=== PATIENT | male | born 1970 | race Caucasian/White ===

== ENCOUNTER 2017-05-28 17:20 | Emergency (ER) | payer BC, OTHER ==
[2017-05-28 17:32] VITALS: BP 157/93
--- NOTE | 2017-05-28 17:39 | UC ---
Elbow Pain - HPI Summary HPI Summary: Pt presents with sudden onset of swelling, tenderness, erythema and warmth to right elbow that began yesterday and has worsened over the last 24 hours. 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 daily at work - History of Current Complaint Chief Complaint: UCUpperExtremity Stated Complaint: RIGHT ELBOW PAIN-WC Time Seen by Provider: 05/28/17 17:26 Hx Obtained From: Patient Onset/Duration: Days - 1, Atraumatic, Still Present, Worse Since - onset Severity Initially: Mild Severity Currently: Moderate Location Of Pain: Is Discrete @ - right elbow Character: Sharp, Dull, Aching Aggravating Factor(s): Movement, Pulling, Twisting Alleviating Factor(s): Rest Associated Signs And Symptoms: Positive: Swelling, Redness - Allergies/Home Medications Allergies/Adverse Reactions: Allergies Allergy/AdvReac Type Severity Reaction Status Date / Time No Known Allergies Allergy Verified 05/28/17 17:29 Home Medications: Home Medications Simvastatin TAB(NF) [Zocor 10 MG (NF)] 1 tab PO DAILY 05/28/17 [History Confirmed 05/28/17] metFORMIN* [Glucophage 500 MG TAB *] 500 mg PO BID 05/28/17 [History Confirmed 05/28/17] PMH/Surg Hx/FS Hx/Imm Hx Previously Healthy: No Endocrine History: Diabetes Cardiovascular History: Hypertension - Surgical History Surgical History: None - Family History Known Family History: Positive: Cardiac Disease - Social History Occupation: Employed Full-time Lives: With Family Alcohol Use: Occasionally Substance Use Type: None Smoking Status (MU): Never Smoked Tobacco Have You Smoked in the Last Year: No Review of Systems Constitutional: Negative Skin: Other - erythema Eyes: Negative ENT: Negative Respiratory: Negative Cardiovascular: Negative Gastrointestinal: Negative Genitourinary: Negative Motor: Decreased ROM - right elbow secondary to pain Neurovascular: Negative Musculoskeletal: Arthralgia - right elbow, Decreased ROM - right elbow, Edema - right elbow, Myalgia - right elbow Neurological: Negative Psychological: Negative All Other Systems Reviewed And Are Negative: Yes Physical Exam Triage Information Reviewed: Yes Appearance: Well-Appearing Vital Signs: Initial Vital Signs Temp 99.5 F 05/28/17 17:21 Pulse 94 05/28/17 17:21 Resp 16 05/28/17 17:21 BP 157/93 05/28/17 17:21 Pulse Ox 98 05/28/17 17:21 Vital Signs Reviewed: Yes Eye Exam: Normal Dental Exam: Normal Neck exam: Normal Respiratory Exam: Normal Cardiovascular Exam: Normal Musculoskeletal Exam: Other Musculoskeletal: Positive: Strength Limited @ - right elbow secondary to tenderness, Edema @ - right elbow/bursa olecrannon, mild erythema, swelling, tenderness, decreased ROM secondary to tenderness Neurological Exam: Normal Psychological Exam: Normal Skin Exam: Other - erythema right elbow Elbow Pain Course/Dx - Differential Dx/Diagnosis Differential Diagnosis/HQI/PQRI: Bursitis, Infection Provider Diagnoses: bursitis-right elbow. infected bursitis right elbow Discharge - Discharge Plan Condition: Stable Disposition: HOME Prescriptions: Cephalexin CAP* [Keflex 500 CAP*] 500 mg PO Q8H #30 cap Patient Education Materials: Elbow Bursitis (ED), RICE Therapy (ED) Forms: *Work Release Referrals: Divine Quispe [Primary Care Provider] - If Needed Additional Instructions: Please follow up with your PCP or return to clinic as needed. If your symptoms worsen please seek care from the nearest healthcare facility immediately.
== END 2017-05-28 17:52 | disposition home or self-care (01) ==
LOC: UCCORT 17:20
DX: M70.21 Olecranon bursitis, right elbow (principal); Y93.9 Activity, unspecified; E11.9 Type 2 diabetes mellitus without complications; Z79.84 Long term (current) use of oral hypoglycemic drugs; I10 Essential (primary) hypertension
CPT/HCPCS: 99212; G0463

== ENCOUNTER 2017-06-19 18:21 | Emergency (ER) | payer BC, OTHER ==
[2017-06-19 18:45] VITALS: BP 142/78
--- NOTE | 2017-06-19 19:40 | UC ---
Elbow Pain - HPI Summary HPI Summary: right elbow pain x 4 weeks + pain and swelling, difficulty flexion / moving the right elbow, no known injury, was seen at the urgent care 3 weeks ago, was dx with elbow bursitis - History of Current Complaint Chief Complaint: UCUpperExtremity Stated Complaint: RIGHT ELBOW PAIN Time Seen by Provider: 06/19/17 18:48 Hx Obtained From: Patient Mechanism of Injury: no known injury Onset/Duration: Weeks - 4, Still Present Severity Initially: Moderate Severity Currently: Severe Location Of Pain: Is Discrete @ - right elbow Character: Aching, Throbbing, Stiffness Aggravating Factor(s): Movement Alleviating Factor(s): Nothing Associated Signs And Symptoms: Positive: Swelling. Negative: Redness, Bruising , Fever - Allergies/Home Medications Allergies/Adverse Reactions: Allergies Allergy/AdvReac Type Severity Reaction Status Date / Time No Known Allergies Allergy Verified 06/19/17 18:44 PMH/Surg Hx/FS Hx/Imm Hx Previously Healthy: Yes - Surgical History Surgical History: None - Family History Known Family History: Positive: Cardiac Disease - Social History Alcohol Use: Rare Substance Use Type: None Smoking Status (MU): Never Smoked Tobacco Have You Smoked in the Last Year: No Review of Systems Constitutional: Negative Skin: Negative Eyes: Negative ENT: Negative Respiratory: Negative Cardiovascular: Negative All Other Systems Reviewed And Are Negative: Yes Physical Exam Triage Information Reviewed: Yes Appearance: Well-Appearing, No Pain Distress, Well-Nourished Vital Signs: Initial Vital Signs Temp 98.8 F 06/19/17 18:40 Pulse 68 06/19/17 18:40 Resp 16 06/19/17 18:40 BP 142/78 06/19/17 18:40 Pulse Ox 97 06/19/17 18:40 Vital Signs Reviewed: Yes Eyes: Positive: Conjunctiva Clear ENT: Positive: Normal ENT inspection, Hearing grossly normal, Pharynx normal Neck: Positive: Supple, Nontender, No Lymphadenopathy Respiratory: Positive: Chest non-tender, Lungs clear, Normal breath sounds Cardiovascular: Positive: RRR, No Murmur, Pulses Normal Musculoskeletal: Positive: Other: - right elblow : + swelling, + effusion , + diffuse tenderness, limited ROM on flexion and extension Elbow Pain Course/Dx - Differential Dx/Diagnosis Provider Diagnoses: elbow effusion Discharge - Discharge Plan Condition: Stable Disposition: HOME Patient Education Materials: Elbow Sprain (ED), Swollen Joint (ED) Referrals: Medardo Pike MD [Medical Doctor] - Divine Quispe [Primary Care Provider] -
--- NOTE | 2017-06-19 19:45 | RAD ---
Indication: Right elbow pain. 4 views of the right elbow demonstrates no fracture. No evidence of joint effusion is noted. No other bone or joint abnormality is identified. IMPRESSION: No fracture of the right elbow is noted.
== END 2017-06-19 19:58 | disposition home or self-care (01) ==
LOC: UCCORT 18:21
DX: M25.421 Effusion, right elbow (principal)
CPT/HCPCS: 99211; G0463

== ENCOUNTER 2017-07-07 11:47 | Day surgery (SDC) | payer BC ==
[~2017-07-07 11:47] MED LIST: Bupivacaine 0.25% SDV* 30 ML ONE
[2017-07-07] MEDS ORDERED: Famotidine IV* 10 MG/ML 2 ML (20 mg) ONE (11:58)
[2017-07-07] MEDS ORDERED: ceFAZolin 2 GM PREMIX (*) 50 ML IVPB ONE (11:58)
[2017-07-07] MEDS ORDERED: Lidocaine 2% PF * 5 ML VIAL ONE (12:12)
[2017-07-07] MEDS ORDERED: Mivacurium Chloride* 20 MG/10 ML VIAL IV ONE (12:12)
[2017-07-07] MEDS ORDERED: Propofol* 10 MG/ML 20 ML BTL IV PUSH ONE (12:12)
[2017-07-07] MEDS ORDERED: fentaNYL* 50 MCG/ML 5 ML VIAL (250 MCG VIAL) ONE (12:12)
[2017-07-07] MEDS ORDERED: Midazolam* 1 MG/ML 2 ML VIAL (2 MG) ONE (12:12)
[2017-07-07] MEDS ORDERED: oxyCODONE/Acetamin 5/325 MG* TAB PO PRN (12:29)
[2017-07-07] MEDS ORDERED: fentaNYL* 50 MCG/ML 2 ML VIAL (100 MCG VIAL) IV PRN (12:29)
[2017-07-07] MEDS ORDERED: HYDROcodone/ACETAMIN 5-325 MG* 1 TAB PO PRN (12:29)
[2017-07-07] MEDS ORDERED: PROCHLORPERAZINE INJ 5 MG/ML 2 ML VIAL IV PRN (12:29)
[2017-07-07] MEDS ORDERED: Ketorolac INJ* 30 MG/ML 1 ML VIAL IV PRN (12:29)
[2017-07-07] MEDS ORDERED: Ondansetron INJ* 2 MG/ML VIAL ONE (13:27)
[2017-07-07 14:47] VITALS: BP 148/88
[2017-07-07] MEDS ORDERED: oxyCODONE/Acetamin 5/325 MG* TAB ONE (14:56)
--- NOTE | 2017-07-07 23:16 | OP ---
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 An housing assistant property manager was needed for the entirety of the procedure to aid in retraction and positioning of the arm. ANESTHESIOLOGIST: Dr. Tripathi. ANESTHESIA: General. PRE-OP DIAGNOSIS: Right olecranon bursitis. POST-OP DIAGNOSIS: Right olecranon bursitis. OPERATIVE PROCEDURE: Right olecranon bursectomy. INDICATIONS: James has been off and on antibiotics for the last month and a half or so. He has had a waxing and weaning olecranon bursitis. It is very painful. I saw him a couple of weeks ago in the clinic and he was doing a bit better on Bactrim. He had stopped the antibiotics when I saw him last Friday and it was more red, inflamed, and very sore and tender to the touch. I had talked to him about treatment options. He wanted to proceed with an olecranon bursectomy. I talked to him about risks and benefits including the risk of wound problems or hematoma. He wanted to proceed. ESTIMATED BLOOD LOSS: 5 mL. COMPLICATIONS: None. FINDINGS: As expected. DESCRIPTION OF PROCEDURE: James was seen in the preoperative holding area. The correct side, site, and procedure were identified. We came back to the operating room and the arm was prepped and draped in the usual fashion. After anesthesia was induced, the patient was positioned in the lateral decubitus position with the arm over an arm reich. A time-out was performed. I exsanguinated the arm and the Esmarch and the tourniquet was inflated to 250 mmHg. I then made a longitudinal incision over the posterior aspect of the elbow right down the midline. The layer between the dermis and the olecranon bursa was developed with a 15 blade. This was carried around the bursa circumferentially taking great care not to button hole though the skin. Once the bursa was released laterally and medially in its entirety, I then came distal and raised the bursa right off of the periosteum and fascia. This was carried back towards the elbow. As we got near the elbow, the area of the olecranon it was very inflamed, very degenerative. The excision was completed and this was passed off as a specimen. I then turned my attention back to the area of the distal triceps insertion. I excised a little bit more degenerative tissue. There were a couple of bony spikes. I took the rongeur and I excised. The central portion of the triceps tendon was degenerative. I curetted this out and I used a rongeur and the knife to clean this all up and got it back to nice clean healthy tissue. Once I had everything debrided back to clean healthy tissue, I irrigated out everything. I took some PDS suture and repaired the superficial crescent of the distal triceps tendon back down to the distal periosteum and fascia over the proximal olecranon and just adjacent to that. The deep part of the triceps tendon was attached. Once I had sewn this back in place and reapproximated that to its foot print on the olecranon, I went ahead and irrigated out the wound. The cautery device was used to achieve hemostasis. Skin was closed with 4-0 nylon suture. The operative area was infiltrated with 0.25% plain Marcaine. The wound was dressed with Xeroform, 4x4 , ABD, Webril, and a posterior splint of the lateral buttress. Tourniquet was deflated, the hand pinked up immediately. He was then awoken up and taken to the recovery room in stable condition. [id number]/[facility] #: [id number] DIMA
== END 2017-07-07 15:00 | disposition home or self-care (01) ==
LOC: OREAST 11:47
PROVIDERS: ATTEND Orthopaedic Surgery Hand Surgery
DX: M70.21 Olecranon bursitis, right elbow (principal); I10 Essential (primary) hypertension; E78.5 Hyperlipidemia, unspecified; E11.9 Type 2 diabetes mellitus without complications; Z79.84 Long term (current) use of oral hypoglycemic drugs
CPT/HCPCS: 87070; 87077; 87186; 87205; 88304; A9270-GY; J0690; J2250; J2405; J2704; J3010